=== PATIENT | female | born 1960 | race Hispanic/Latino ===

== ENCOUNTER 2018-07-20 20:10 | Emergency (ER) | payer SELFPAY ==
[~2018-07-20] VITALS: Ht 154.9 cm; Wt 66.0 kg
[~2018-07-20 20:10] MED LIST: AMITIZA8 MCG PO; CEPHALEXIN500 MG OR; CIPROFLOXACN500 MG PO; CYCLOBENZAPR10 MG PO; GLIPIZIDE5 M2 PO; GLYBURIDE5 MG PO; KENALOG15 GM/TUBE EX; LANCETS 30G30 G SC; LISINOPRIL10 MG PO; LISINOPRIL20 MG PO; LORTAB 5/3255 MG PO; LORTAB5 PO; MEGACE40 MG PO; MEGESTROL ACETA40 MG PO; METFORMIN HCL1000 MG PO; METFORMIN1000 MG PO; METFORMIN500 MG PO; METRONIDAZOL500 MG PO; NAPROSYN500 MG PO; NORETHIN ACE5 MG PO; PREDNISONE10 MG PO; PREDNISONE50 MG PO; QUINAPRIL10 MG PO; ULTRAM50 M1 PO; VISTARIL50 MG PO; no home meds
[2018-07-20 21:11] LABS: IMMATURE GRANULOCYTES 0.3 % (0.0-5.0); MEAN CORPUSCULAR HGB 29.2 pG CALC (26.0-32.0); MEAN CORPUSCULAR HGB CONC 33.1 g/L CALC (32.0-36.0); NEUT# 5.23 thou/uL (2.00-7.15); RED BLOOD COUNT 5.52 mill/uL (4.20-5.60); RED CELL DISTRI WIDTH 12.6 % (11.5-15.5)
[2018-07-20 21:12] LABS: HEMATOCRIT 48.6 % (37.0-47.0); HEMOGLOBIN 16.1 g/dl (12.0-16.0)
[2018-07-20 21:31] LABS: ANION GAP 18 (6-22 (CALC)); BILIRUBIN, TOTAL 0.5 mg/dL (0.0-1.4); BUN 21 mg/dL (7-17); BUN/CREATININE RATIO 56 (12-20 (CALC)); CARBON DIOXIDE 27 mmol/l (22-30); CHLORIDE 99 mmol/l (95-108); CREATININE 0.4 mg/dL (0.5-1.0); GFR > 60 ML/MIN (>=60 (CALC)); GFR FOR AFR.AMER. > 60 ML/MIN (>=60 (CALC)); POTASSIUM 4.2 mmol/l (3.5-5.1); SGOT/AST 36 u/l (14-36); SODIUM 139 mmol/l (137-146)
[2018-07-20 21:36] LABS: URINE BILIRUBIN - DIPSTICK NEGATIVE (NEGATIVE); URINE BLOOD DIPSTICK NEGATIVE (NEGATIVE); URINE COLOR YELLOW; URINE GLUCOSE - DIPSTICK >=1000 mg/dL (NEGATIVE); URINE KETONE NEGATIVE (NEGATIVE); URINE LEUK ESTERASE TRACE (NEGATIVE); URINE NITRITE - DIPSTICK NEGATIVE (Negative); URINE PH 6.5 (4.5-8.0); URINE PROTEIN - DIPSTICK TRACE mg/dL (NEG-TRACE); URINE UROBILINOGEN - DIPSTICK 0.2 E.U./dL (0.2)
[2018-07-20 21:39] LABS: ALKALINE PHOSPHATASE 165 u/l (38-126); TOTAL PROTEIN 8.6 g/dL (6.3-8.2)
[2018-07-20 21:42] LABS: MYOGLOBIN 24 ng/mL (0 - 62)
[2018-07-21 03:40] VITALS: BP 123/48
== END 2018-07-21 03:46 | disposition home or self-care (01) | DRG 305 ==
LOC: ED 20:10
PROVIDERS: Emergency Medicine
DX: I10 Essential (primary) hypertension (principal); E11.65 Type 2 diabetes mellitus with hyperglycemia